=== PATIENT | male | born 1985 | race African-American/Black ===

== ENCOUNTER 2017-01-10 07:39 | Emergency (ER) | payer SELFPAY ==
[~2017-01-10 07:39] MED LIST: ACYCLOVIR PO; DELTASONE20 MG PO; NEURONTIN100 MG PO
== END 2017-01-10 08:17 | disposition home or self-care (01) ==
LOC: SED 07:39
DX: M54.12 Radiculopathy, cervical region (principal); M62.838 Other muscle spasm; F17.200 Nicotine dependence, unspecified, uncomplicated; Z88.0 Allergy status to penicillin
CPT/HCPCS: 99282